=== PATIENT | male | born 1960 | race Hispanic/Latino ===

== ENCOUNTER 2017-08-03 03:18 | Emergency (ER) | payer BC ==
[2017-08-03 03:18] VITALS: BMI 22.2
[2017-08-03 03:28] VITALS: BP 139/94; PULSE 95; TEMP 97.7; O2SAT 96
[2017-08-03 04:11] VITALS: RESP 16
--- NOTE | 2017-08-03 05:51 | ED PDOC ---
Arrival/HPI - History of Present Illness Time/Duration: Prior to Arrival Quality: Aching Activities at Onset: Sleeping Context: Home - General Chief Complaint: Shortness Of Breath Time Seen by Provider: 08/03/17 03:36 - History of Present Illness Narrative History of Present Illness (Text): Patient is a 56 year old male with PMH of diabetes, hyperlipidemia, who presents with shortness of breath, chest tightness, and non radiating right shoulder pain. Patient states that he woke up feeling short of breath and had a tight feeling in his chest. He denies any associated n/v/d, chest pain, headache. Patient states he consumed a large amount of alcohol this past night as well as cigarettes. He admits to cocaine abuse as well from time to time. 08/03/17 05:46 08/03/17 05:54 (CK PANTOJA) Past Medical History - Provider Review Nursing Documentation Reviewed: Yes - Cardiac Hx Hypertension: Yes - Pulmonary Hx Respiratory Disorders: No - Neurological Hx Neurological Disorder: No - HEENT Hx HEENT Disorder: No - Renal Hx Renal Disorder: No - Endocrine/Metabolic Hx Diabetes Mellitus Type 1: Yes - Hematological/Oncological Hx Blood Disorders: Yes Hx AIDS: Yes - Integumentary Hx Dermatological Disorder: No - Musculoskeletal/Rheumatological Hx Musculoskeletal Disorders: No - Gastrointestinal Hx Gastrointestinal Disorders: No - Genitourinary/Gynecological Hx Genitourinary Disorders: Yes Hx Prostate Problems: Yes (HX ACUTE RECCURENT PROSTATIS) - Psychiatric Hx Psychophysiologic Disorder: No Hx Substance Use: Yes (cocaine) - Surgical History Other/Comment: BILATERAL INGUNIAL REPAIR - Anesthesia Hx Anesthesia: Yes Hx Anesthesia Reactions: No Hx Malignant Hyperthermia: No Family/Social History - Physician Review Nursing Documentation Reviewed: Yes Family/Social History: Other Smoking Status: Heavy Smoker > 10 Cigarettes Daily Hx Alcohol Use: Yes Frequency of alcohol use: Few days per week Hx Substance Use: Yes (cocaine) Narrative Family History (Free Text): non contributory (CK PANTOJA) Allergies/Home Meds Allergies/Adverse Reactions: Allergies No Known Allergies Allergy (Verified 08/03/17 03:23) Home Medications: Home Meds Medication Instructions Recorded Confirmed Unobtainable 08/03/17 08/03/17 Review of Systems - Physician Review All systems were reviewed & negative as marked: Yes - Review of Systems Constitutional: absent: Fatigue, Weight Change Eyes: absent: Vision Changes ENT: absent: Hearing Changes Respiratory: SOB. absent: Cough Cardiovascular: Chest Pain. absent: Palpitations Gastrointestinal: absent: Abdominal Pain Genitourinary Male: absent: Dysuria Musculoskeletal: absent: Arthralgias Neurological: absent: Dizziness, Focal Weakness Psychiatric: Anxiety Physical Exam Vital Signs Reviewed: Yes Temperature: Afebrile Pulse: Regular Respiratory Rate: Normal Appearance: Positive for: Uncomfortable Pain Distress: Moderate Mental Status: Positive for: Alert and Oriented X 3 - Systems Exam Head: Present: Atraumatic, Normocephalic Extroacular Muscles: Present: EOMI Conjunctiva: Present: Normal Mouth: Present: Moist Mucous Membranes Respiratory/Chest: Present: Clear to Auscultation, Good Air Exchange Cardiovascular: Present: Regular Rate and Rhythm, Normal S1, S2 Abdomen: No: Tenderness, Distention Neurological: Present: CN II-XII Intact Skin: Present: Normal Color Psychiatric: Present: Alert, Oriented x 3 Vital Signs Temp Pulse Resp BP Pulse Ox 08/03/17 03:37 16 08/03/17 03:26 97.7 F 95 H 18 139/94 H 96 Medical Decision Making ED Course and Treatment: Assessment 56 year old male with shortness of breath, chest tightness, and left shoulder pain Plan -EKG -Cardiac enzymes workup -Chest x-ray - Aspirin The patient is choosing to leave against medical advice. I have personally explained to the patient that choosing to do so may result in permanent bodily harm or . I have discussed at great length that without further evaluation and monitoring there may be unforeseen circumstances and/or deterioration causing permanent bodily harm or as a result of their choice. The patient is alert, oriented, and shows the mental capacity to make clear decisions regarding the patients health care at this time. The patient continues to wish to leave against medical advice. The patient has been advised that they should return to the emergency room immediately if they change their mind at any time, or if their condition begins to change or worsen in any way. 08/03/17 06:09 (CK PANTOJA) Seen and examiend with resident. 56 y/o M p/w chest pressure. Heart S1S2. (Lance Bobby) - Medication Orders Current Medication Orders: Discontinued Medications Aspirin (Aspirin) 325 mg PO STAT STA Stop: 09/02/17 03:41 Last Admin: 08/03/17 03:50 Dose: 325 mg Disposition/Present on Arrival - Present on Arrival Any Indicators Present on Arrival: No History of DVT/PE: No History of Uncontrolled Diabetes: No Urinary Catheter: No History of Decub. Ulcer: No History Surgical Site Infection Following: None - Disposition Have Diagnosis and Disposition been Completed?: No Disposition Time: 04:04 Patient Plan: Admission - Disposition Diagnosis: Shortness of breath Disposition: AGAINST MEDICAL ADVICE Condition: SERIOUS Referrals: PCP,NO [Primary Care Provider] - Follow up with primary Forms: Notegraphy (Khmer)
--- NOTE | 2017-08-03 08:55 | CARD ---
APPROVED REPORT EKG Measurement Heart [id number] <Conclusion> Normal sinus rhythm Possible Left atrial enlargement Incomplete right bundle branch block Borderline ECG
== END 2017-08-03 04:13 | disposition left against medical advice (07) ==
LOC: ED 03:18
DX: R06.02 Shortness of breath (principal); E11.9 Type 2 diabetes mellitus without complications; E78.5 Hyperlipidemia, unspecified